=== PATIENT | male | born 1995 | race Caucasian/White ===

== ENCOUNTER 2018-08-02 13:06 | Day surgery (SDC) | payer OTHER ==
[2018-08-02] MEDS ORDERED: LIDOCAINE 4% SOLUTION 50 ML BTL (15:29)
[2018-08-02] MEDS ORDERED: MIDAZOLAM 1 MG/ML 2 ML INJ ×2 (16:00)
[2018-08-02] MEDS ORDERED: FENTAnyl 50 MCG/ML VIAL (16:00)
== END 2018-08-02 16:40 | disposition home or self-care (01) ==
LOC: GIL 13:06
DX: K44.9 Diaphragmatic hernia without obstruction or gangrene (principal); K29.60 Other gastritis without bleeding
CPT/HCPCS: 43239; 88305; 88312